=== PATIENT | male | born 1970 | race American Indian/Alaskan Native ===

== ENCOUNTER 2020-09-25 20:50 | Emergency (ER) | payer OTHER ==
[2020-09-25 22:09] VITALS: BP 150/90
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
== END 2020-09-25 23:45 | disposition home or self-care (01) ==
LOC: ED 20:50
DX: S46.912A Strain of unspecified muscle, fascia and tendon at shoulder and upper arm level, left arm, initial encounter (principal); E11.9 Type 2 diabetes mellitus without complications; J45.909 Unspecified asthma, uncomplicated; Z79.899 Other long term (current) drug therapy; V49.49XA Driver injured in collision with other motor vehicles in traffic accident, initial encounter; W22.10XA Striking against or struck by unspecified automobile airbag, initial encounter; Y93.89 Activity, other specified; Y92.410 Unspecified street and highway as the place of occurrence of the external cause; Y99.8 Other external cause status

== ENCOUNTER 2021-05-28 23:37 | Emergency (ER) | payer OTHER ==
[2021-05-29 00:34] VITALS: BP 142/86
--- NOTE | 2021-05-29 04:42 | XRay Report ---
CHEST 2 VIEWS INDICATION / CLINICAL INFORMATION: Cough. COMPARISON: None available. FINDINGS: SUPPORT DEVICES: None. HEART / MEDIASTINUM: The heart size and pulmonary vasculature are normal. LUNGS / PLEURA: There is possible mild patchy groundglass parenchymal disease in the right upper lobe . No definite abnormality is seen in the left lung. There is no evidence of pleural effusion. No pneu mothorax. ADDITIONAL FINDINGS: No significant additional findings. IMPRESSION: Possible mild patchy right upper lobe pneumonia. Signer Name: John Urban MD Signed: 05/29/2021 4:38 AM Workstation Name: [id number]
--- NOTE | 2021-05-29 05:05 | Emergency Department Report ---
- General Chief Complaint: Weakness Stated Complaint: EXPOSED TO COVID PUI?: Yes Source: patient Mode of arrival: Ambulatory Limitations: No Limitations - History of Present Illness Initial Comments: Patient is a 50-year-old -[place] male who presents to the ED with complaint of acute onset persistent nasal and sinus congestion, persistent dry cough for the last 4 days after being exposed to an individual who tested positive for COVID-19 viral infection. Patient states that his symptoms got worse in the last 24 hours and are characterized by diffuse body aches and pa ins. Patient states that he has not been he started experiencing the symptoms. Patient denies fever, nausea, vomiting, diarrhea, dysuria, evaluated since urinary frequency and urgency, chest pain or shortness of breath, cough, sore throat. MD Complaint: cough, rhinorrhea, nasal congestion, sinus pain -: Sudden, days(s) (5) Severity: moderate Severity scale (0 -10): 4 Consistency: intermittent Improves With: nothing Worsens With: nothing Context: sick contacts Associated Symptoms: denies other symptoms, chills, myalgias, headache, rhinorrhea, nasal congestion, sore throat, cough, shortness of breath. denies: stiff neck, right sweats, epistaxis - Related Data Previous Rx's Medication Instructions Recorded Last Taken Type Naproxen [EC-Naprosyn] 500 mg PO BID PRN #14 tablet. 09/25/20 Unknown Rx methOCARBAMOL [Robaxin TAB] 500 mg PO BID PRN #14 tab 09/25/20 Unknown Rx Benzonatate [Tessalon Perles] 100 mg PO Q8HR #30 capsule 05/29/21 Unknown Rx Cetirizine HCl [Zyrtec 10mg tab] 10 mg PO DAILY #30 tablet 05/29/21 Unknown Rx Doxycycline Hyclate [Doxycycline 100 mg PO Q12HR #20 tab 05/29/21 Unknown Rx Hyclate TAB] Ibuprofen [Motrin] 800 mg PO Q8HR PRN #24 tablet 05/29/21 Unknown Rx Allergies Allergy/AdvReac Type Severity Reaction Status Date / Time No Known Allergies Allergy Verified 09/25/20 22:07 ED Review of Systems ROS: Stated complaint: EXPOSED TO COVID Other details as noted in HPI Constitutional: denies: chills, fever Eyes: denies: eye pain, eye discharge, vision change ENT: congestion. denies: ear pain, throat pain Respiratory: cough. denies: shortness of breath, wheezing Cardiovascular: denies: chest pain, palpitations Endocrine: no symptoms reported Gastrointestinal: denies: abdominal pain, nausea, vomiting, diarrhea Genitourinary: denies: urgency, dysuria Musculoskeletal: arthralgia, myalgia. denies: back pain, joint swelling Skin: denies: rash, lesions Neurological: denies: headache, weakness, paresthesias Psychiatric: denies: anxiety, depression Hematological/Lymphatic: denies: easy bleeding, easy bruising ED Past Medical Hx - Past Medical History Hx Diabetes: Yes Hx Asthma: Yes - Social History Smoking Status: Never Smoker Substance Use Type: None - Medications Home Medications: Home Medications Medication Instructions Recorded Confirmed Last Taken Type Naproxen [EC-Naprosyn] 500 mg PO BID PRN #14 tablet.dr 09/25/20 Unknown Rx methOCARBAMOL [Robaxin TAB] 500 mg PO BID PRN #14 tab 09/25/20 Unknown Rx Benzonatate [Tessalon Perles] 100 mg PO Q8HR #30 capsule 05/29/21 Unknown Rx Cetirizine HCl [Zyrtec 10mg tab] 10 mg PO DAILY #30 tablet 05/29/21 Unknown Rx Doxycycline Hyclate [Doxycycline 100 mg PO Q12HR #20 tab 05/29/21 Unknown Rx Hyclate TAB] Ibuprofen [Motrin] 800 mg PO Q8HR PRN #24 tablet 05/29/21 Unknown Rx ED Physical Exam - General Limitations: No Limitations General appearance: alert, in no apparent distress - Head Head exam: Present: atraumatic, normocephalic, normal inspection - Eye Eye exam: Present: normal appearance, PERRL, EOMI Pupils: Present: normal accommodation - ENT ENT exam: Present: normal exam, normal orophraynx, mucous membranes moist, TM's normal bilaterally, normal external ear exam - Neck Neck exam: Present: normal inspection, full ROM - Respiratory Respiratory exam: Present: normal lung sounds bilaterally. Absent: respiratory distress, wheezes, rales, rhonchi, stridor, chest wall tenderness, accessory muscle use, decreased breath sounds - Cardiovascular Cardiovascular Exam: Present: regular rate, normal rhythm, normal heart sounds. Absent: systolic murmur, diastolic murmur, rubs, gallop - GI/Abdominal GI/Abdominal exam: Present: soft, normal bowel sounds. Absent: tenderness, guar ding, rigid, hyperactive bowel sounds, hypoactive bowel sounds, organomegaly - Extremities Exam Extremities exam: Present: normal inspection, full ROM, normal capillary refill - Back Exam Back exam: Present: normal inspection, full ROM. Absent: tenderness, CVA tenderness (R), CVA tenderness (L), muscle spasm, paraspinal tenderness - Neurological Exam Neurological exam: Present: alert, oriented X3, CN II-XII intact, normal gait, reflexes normal - Psychiatric Psychiatric exam: Present: normal affect, normal mood, anxious - Skin Skin exam: Present: warm, dry, intact, normal color. Absent: rash ED Course Vital Signs 05/29/21 00:29 Temperature 97.6 F Pulse Rate 68 Respiratory 16 Rate Blood Pressure 142/86 [Left] O2 Sat by Pulse 98 Oximetry ED Medical Decision Making - Radiology Data Radiology results: report reviewed, [place] [address] XRay Report Signed Patient: MARGARETTE QUARLES MR#: [id number] : 1970 Acct:[id number] Age/Sex: 50 / M ADM Date: 05/28/21 Loc: ED Attending Dr: Ordering Physician: RUDY RAREAGA Date of Service: 05/29/21 Procedure(s): XR chest routine 2V Accession Number(s): [id number] cc: RUDY ARREAGA Fluoro Time In Minutes: CHEST 2 VIEWS INDICATION / CLINICAL INFORMATION: Cough. COMPARISON: None available. FINDINGS: SUPPORT DEVICES: None. HEART / MEDIASTINUM: The heart size and pulmonary vasculature are normal. LUNGS / PLEURA: There is possible mild patchy groundglass parenchymal disease in the right upper lobe. No definite abnormality is seen in the left lung. There is no evidence of pleural effusion. No pneumothorax. ADDITIONAL FINDINGS: No significant additional findings. IMPRESSION: Possible mild patchy right upper lobe pneumonia. Signer Name: John Urban MD Signed: 05/29/2021 4:38 AM Workstation Name: [id number] Transcribed By: RT Dictated By: John Urban MD Electronically Authenticated By: John Urban MD Signed Date/Time: 05/29/21437 DD/ 6 TD/TT: - Medical Decision Making This is a 50-year-old -[place] male who presents to the ED with complaint of acute onset persistent nasal and sinus congestion, persistent dry cough for the last 4 days after being exposed to an individual who tested positive for COVID-19 viral infection. Patient states that his symptoms got worse in the last 24 hours and are characterized by diffuse body aches and pains. Patient states that he has not been he started experiencing the symptoms. In the ED, patient is alert and oriented x3 and is not in any distress. Chest x-ray showed a possible mild patchy right upper lobe pneumonia. Patient was initially treated in the ED with Rocephin 1 g intramuscular injection and azithromycin 500 mg p.o. x1. Patient oxygen saturation is 98% in room air patient is hemodynamically stable. Patient was thereafter discharged home on medications and advised to follow-up with his primary care physician in 5 to 7 days for reevaluation, and to ensure that he gets tested for COVID-19 viral infection in any of the outpatient facilities and if positive to self quarantine for 10 days as required. Patient was advised return to the ED immediately if symptoms get worse - Differential Diagnosis Pneumonia; bronchitis; URI; COVID-19 Critical care attestation.: If time is entered above; I have spent that time in minutes in the direct care of this critically ill patient, excluding procedure time. ED Disposition Clinical Impression: Acute upper respiratory infection, Suspected 2019 novel coronavirus infection Community acquired pneumonia Qualifiers: Laterality: right Lung location: upper lobe of lung Qualified Code(s): J18.9 - Pneumonia, unspecified organism Disposition: 01 HOME / SELF CARE / HOMELESS Is pt being admited?: No Does the pt Need Aspirin: No Condition: Stable Instructions: Bacterial Pneumonia (ED), Upper Respiratory Infection, Adult, [id number], Community-Acquired Pneumonia, Adult, [id number], Cough, Adult, [id number], COVID-19: How to Protect Yourself and Others - CDC, Prevent the Spread of COVID-19 if You Are Sick - [facility] Additional Instructions: Chest x-ray showed possible mild patchy right upper lobe pneumonia. Therefore take medication with food, drink plenty fluids and follow-up with your primary care physician in 5 to 7 days for reevaluation. Ensure that you get tested for COVID-19 viral infection in any of the outpatient facilities and if positive to self quarantine for 10 days while taking medications. Otherwise return to the ED immediately if your symptoms get worse. Prescriptions: Doxycycline Hyclate [Doxycycline Hyclate TAB] 100 mg PO Q12HR #20 tab Ibuprofen [Motrin] 800 mg PO Q8HR PRN #24 tablet PRN Reason: Pain or fever Benzonatate [Tessalon Perles] 100 mg PO Q8HR #30 capsule Cetirizine HCl [Zyrtec 10mg tab] 10 mg PO DAILY #30 tablet Referrals: [facility] [Provider Group] - 3-5 Days Time of Disposition: 05:26 Print Language: NIC[place]
[2021-05-29] MEDS ORDERED: AZITHROMYCIN 250 MG TAB PO ONE (05:28)
[2021-05-29] MEDS ORDERED: LIDOCAINE-MPF (1%) 10 MG/1 ML VIAL 5 ML INFILTRATI ONE (05:28)
== END 2021-05-29 07:40 | disposition home or self-care (01) ==
LOC: ED 23:37
DX: J06.9 Acute upper respiratory infection, unspecified (principal); Z20.822 Contact with and (suspected) exposure to COVID-19; J18.9 Pneumonia, unspecified organism
CPT/HCPCS: 71046; 99283; J0696; J3490